=== PATIENT | female | born 2000 | race Caucasian/White ===

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

== ENCOUNTER → 2019-03-07 11:22 | Outpatient (CLI) | payer OTHER, SELFPAY ==
[2019-03-07 10:54] VITALS: BMI 24.9
[2019-03-07 12:00] LABS: Absolute Lymphocyte Count 2.16 X10^3/ul (0.83-4.51); Absolute Neutrophil Count 9.6 X10^3/uL (2.0-7.7); Basophil# 0.03 X10^3/uL; Basophil% 0.2 % (0-1); Eosinophil# 0.07 X10^3/uL; Eosinophils% 0.6 % (0-5); Hematocrit 29.2 % (37-47); Hemoglobin 9.3 g/dl (12.0-15.0); Lymphocyte # 2.16 X10^3/ul (4.0); Lymphocyte % 17.3 % (19-41); Mean Corp Hgb Conc 31.8 g/gl (32-36); Mean Corpuscular Hgb 24.5 pg (27.0-32.0); Mean Corpuscular Volume 76.8 fL (81-99); Mean Platelet Vol. 10.4 fl (6.2-12.0); Monocyte% 4.8 % (0-10); Neutrophil # 9.57 X10^3/uL (2.7-7.7); Neutrophil % 76.7 % (47-70); Platelet Count 262 K/mm3 (150-450); RBC Distribution Width CV 13.5 % (11.6-14.6); RBC Distribution Width SD 36.5 fl (35.1-43.9); White Blood Count 12.5 K/mm3 (4.4-11.0)
[2019-03-07 12:02] LABS: POSITIVE COUNT NO; POSITIVE DIFFERENTIAL NO; POSITIVE MORPHOLOGY NO
[2019-03-07 12:16] LABS: Glucose Challenge Gest 1H 50g 147 mg/dL (70-140)
== END ==
PROVIDERS: Nurse Practitioner Women's Health; Family Provider Pediatrics; PCP Pediatrics; Referring Provider Obstetrics & Gynecology; Visit Provider Obstetrics & Gynecology
DX: Z34.80 Encounter for supervision of other normal pregnancy, unspecified trimester (principal)
CPT/HCPCS: 36415; 82950; 85025

== ENCOUNTER 2019-03-28 21:37 | Emergency (ER) | payer OTHER, MEDICAID, SELFPAY ==
[2019-03-28 11:26] VITALS: BMI 24.9
[2019-03-28 21:39] VITALS: BP 133/65; PULSE 104; RESP 18; TEMP 36.8; O2SAT 96; BMI 28.0
[2019-03-28 21:57] LABS: Mucous, Urine 0 SEEN /hpf (<or=2+)
[2019-03-28 22:20] LABS: Color, Urine Yellow (Yellow); Glucose, Dipstick Normal (Normal); Ketone-Dipstick Negative (Negative); Leukocyte Esterase-Dipstick 25 /ul (Negative); Nitrite-Dipstick Negative (Negative); Occult Blood-Urine 10 /ul (Negative); Protein-Dipstick Negative (Negative); Specific Gravity, Urine 1.005 (1.002-1.030); Urine Bilirubin Dipstick Negative (Negative); Urine Clarity Sl. Cloudy (Clear); Urine Urobilinogen Normal (Normal)
[2019-03-28 22:21] LABS: Squamous Epithelial Cells - UA 0-5 SEEN /hpf (5-10)
[2019-03-28 22:23] LABS: Bacteria RARE /hpf (None Seen); Red Blood Cells-Urine 0-5 SEEN /hpf (0-5); White Blood Cells 0-5 SEEN /hpf (0-5)
--- NOTE | 2019-03-28 23:23 | ED.DCSUM_ITS ---
History of Present Illness Chief Complaint: Complaint Informant: Patient Onset: Yesterday Context: Sudden Onset Timing: Intermittent Quality: Suprapubic pressure, frequency and low back pain Location: Central Current Severity: Mild Maximum Severity: Mild Worsened by: Nothing Relieved by: Nothing Associated Symptoms: No constitutional symptoms Narrative: Patient is a G2, P1 Ab0 female who is 31 weeks gestation and presents with frequency. She was diagnosed with UTI at urgent care. She was placed on a 7- day course of Macrobid. She reports she continues to have frequency. She denies fever, chills or night sweats. She denies ocular, visual or auditory symptoms. She denies respiratory cardiac symptoms. She denies nausea or vomiting. She denies abdominal pain. She states she had 4 urinary tract infections during her first . Prior similar symptoms: Yes Recent Illness/Hospitalization: No - Past Medical History (1) UTI in , antepartum Status: Acute Comment: treated; repeat culture neg Past Medical History - Allergies and Home Meds Allergies/Adverse Reactions: Allergies No Known Allergies Allergy (Verified 03/28/19 21:43) Primary Care Physician: Anahy Hirsch MD [Primary Care Provider] - Prior records reviewed: Yes Surgical History: no surgical history Lives: With Family Smoking Status: Never smoker Alcohol: None Review of Systems General: Denies: Chills, Fever, Malaise, Sweats Cardiovascular: Denies: Chest pain Respiratory: Denies: Dyspnea Gastrointestinal: Denies: Abdominal pain, Nausea, Vomiting Genitourinary: Reports: Frequency. Denies: Dysuria, Hematuria Musculoskeletal: Denies: Myalgias, Arthralgias, Neck pain, Back pain Skin: Denies: Rash Neurological: Denies: Headache, Weakness Physical Exam Vital Signs/Narrative: Vital Signs Temp Pulse Resp BP Pulse Ox 03/28/19 21:39 98.2 F 104 H 18 133/65 H 96 Inital Vital Signs reviewed: Yes General: Well nourished, Well developed, No Acute Distress Head: Normocephalic, Atraumatic Eyes: Perrl, EOMI. Negative for: Pale conjunctiva, Scleral icterus ENT: Moist mucous membranes, No rhinorrhea, TM's clear Neck: Supple, Nontender Cardiovascular: Regular rate, Regular rhythm, No murmurs, Normal S1, Normal S2 Respiratory: No distress, CTA bilaterally, Chest nontender Abdomen: Soft, Nontender, Nondistended, Normal bowel sounds, No masses Back: Nontender, Normal Inspection. Negative for: CVA tenderness Skin: Normal color, No rash Neurological: Alert, Oriented x3, Cranial nerves II-XII grossly intact, Normal Strength, Normal Sensation Psychological: Normal affect, Normal Mood Diagnostic/Tx/Re-eval Laboratory Results 03/28/19 03/28/19 03/28/19 21:45 23:24 23:24 WBC 13.7 H RBC 3.61 L Hgb 8.9 L Hct 27.3 L MCV 75.6 L MCH 24.7 L MCHC 32.6 RDW 14.6 RDW Differential 38.4 Plt Count 268 MPV 10.5 Immature Gran % (Auto) 0.900 Neut % (Auto) 69.3 Lymph % (Auto) 19.7 Ross % (Auto) 9.0 Eos % (Auto) 0.9 Baso % (Auto) 0.2 Absolute Neuts (auto) 9.5 H Absolute Lymphs (auto) 2.71 Sodium 138 Potassium 3.5 Chloride 108 H Carbon Dioxide 22.0 Anion Gap 8 BUN 9 Creatinine 0.64 Estim Creat Clear Calc 131.26 Est GFR (MDRD) Af Amer 152 Est GFR (MDRD) Non-Af 126 BUN/Creatinine Ratio 14.1 Glucose 98 Calcium 8.6 Urine Color Yellow Urine Clarity Sl. Cloudy Urine pH 7.0 Ur Specific [place] 1.005 Urine Protein Negative Urine Glucose (UA) Normal Urine Ketones Negative Urine Occult Blood 10 H Urine Nitrite Negative Urine Bilirubin Negative Urine Urobilinogen Normal Ur Leukocyte Esterase 25 H Urine RBC 0-5 SEEN Urine WBC 0-5 SEEN Ur Squamous Epith Cells 0-5 SEEN Urine Bacteria RARE Urine Mucus 0 SEEN - Medical Decision Making Patient diagnosed earlier today with UTI. She continues symptoms. Patient reports using the restroom every 30 to 60 minutes. This may explain why her urinalysis is unremarkable this evening. Patient was informed even though her urine is unremarkable she may still have urinary symptoms for 24 to 48 hours. Will prescribe Pyridium. She was instr ucted to continue taking Macrobid. She also has history of microcytic anemia. She was placed on iron tablets 3 times a day last week. ED Disposition - Plan for ED Patient: Disposition: Home or Assisted Living Diagnosis: Cystitis during in third trimester, antepartum, Microcytic anemia Instructions: ED UTI Cystitis Female Referrals: Anahy Hirsch MD [Primary Care Provider] - Tg Franks MD [STAFF PHYSICIAN] - 3-5 Days
[2019-03-28 23:36] LABS: Absolute Lymphocyte Count 2.71 X10^3/ul (0.83-4.51); Absolute Neutrophil Count 9.5 X10^3/uL (2.0-7.7); Basophil# 0.03 X10^3/uL; Basophil% 0.2 % (0-1); Eosinophil# 0.13 X10^3/uL; Eosinophils% 0.9 % (0-5); Hematocrit 27.3 % (37-47); Hemoglobin 8.9 g/dl (12.0-15.0); Lymphocyte # 2.71 X10^3/ul (4.0); Lymphocyte % 19.7 % (19-41); Mean Corp Hgb Conc 32.6 g/gl (32-36); Mean Corpuscular Hgb 24.7 pg (27.0-32.0); Mean Corpuscular Volume 75.6 fL (81-99); Mean Platelet Vol. 10.5 fl (6.2-12.0); Monocyte# 1.23 X10^3/uL; Neutrophil # 9.51 X10^3/uL (2.7-7.7); Neutrophil % 69.3 % (47-70); Platelet Count 268 K/mm3 (150-450); RBC Distribution Width CV 14.6 % (11.6-14.6); RBC Distribution Width SD 38.4 fl (35.1-43.9); Red Blood Count 3.61 M/mm3 (4.2-5.4); White Blood Count 13.7 K/mm3 (4.4-11.0)
[2019-03-28 23:38] LABS: Differential Indicated SCAN CRITERIA MET; POSITIVE COUNT NO; POSITIVE DIFFERENTIAL NO; POSITIVE MORPHOLOGY YES
[2019-03-28 23:48] LABS: Anion Gap 8 (5-15); BUN 9 mg/dL (7-18); BUN/Creat Ratio 14.1 RATIO (10-20); Calcium,Total 8.6 mg/dL (8.5-10.1); Chloride 108 mmol/L (98-107); Creatinine, Serum 0.64 mg/dL (0.55-1.02); EST Glomerular Filtration Rate 126 mL/min (>60); Est Glom Filt Rate - Afr Amer 152 mL/min (>60); Estimated Creatinine Clearance 131.26 ml/min; Glucose 98 mg/dL (74-106); Potassium 3.5 mmol/L (3.5-5.1); Sodium Level 138 mmol/L (136-145)
[2019-03-29] LABS: Differential Comment SCANNED
[2019-03-29 00:08] VITALS: BP 101/63; PULSE 82; RESP 16; O2SAT 97
[2019-03-29 00:11] VITALS: BP 101/63; PULSE 82; RESP 16; O2SAT 97
--- NOTE | 2019-03-29 00:11 | ED.DCSUM_ITS ---
- ER Visit Summary Date of Service: 03/29/19 Chief Complaint: [] History of Present Illness: The patient is a 19 F [] Physical Examination: [] Test Results: [] Emergency Department Course and Treatment: [] Treatment Plan: [] Disposition: [] Impression: [] This note was generated with [employer]points dictation software. It may contain incorrect words, spelling, and punctuation that were not noted in review of the chart prior to signing ED Disposition - Plan for ED Patient: Disposition: Home or Assisted Living Diagnosis: Cystitis during in third trimester, antepartum, Microcytic anemia Instructions: ED UTI Cystitis Female Prescriptions: Phenazopyridine HCl [Pyridium] 200 mg PO TID #10 tab Referrals: Anahy Hirsch MD [Primary Care Provider] - Tg Franks MD [STAFF PHYSICIAN] - 3-5 Days
== END 2019-03-29 00:13 | disposition home or self-care (01) ==
PROVIDERS: Emergency Provider Emergency Medicine; Family Provider Pediatrics; PCP Pediatrics
DX: O23.13 Infections of bladder in pregnancy, third trimester (principal); N30.00 Acute cystitis without hematuria; O99.013 Anemia complicating pregnancy, third trimester; D50.9 Iron deficiency anemia, unspecified; Z3A.31 31 weeks gestation of pregnancy
CPT/HCPCS: 80048; 81001; 85025; 99283; A4216

== ENCOUNTER → 2019-03-30 09:43 | Outpatient (CLI) | payer OTHER, SELFPAY ==
[2019-03-28 11:26] VITALS: BMI 24.9
[2019-03-28 21:39] VITALS: BMI 28.0
[2019-03-30 11:03] LABS: Glucose GTT-Gestation. Fasting 83 mg/dL (<105)
[2019-03-30 12:02] LABS: Glucose GTT-Gestational 1 Hr 138 mg/dL (<190)
[2019-03-30 13:42] LABS: Glucose GTT-Gestational 2 Hr 131 mg/dL (<165)
[2019-03-30 13:54] LABS: Glucose GTT-Gestational 3 Hr 88 L (<145)
== END ==
PROVIDERS: Family Provider Pediatrics; PCP Pediatrics; Referring Provider Nurse Practitioner Women's Health; Visit Provider Nurse Practitioner Women's Health
DX: O99.815 Abnormal glucose complicating the puerperium (principal)
CPT/HCPCS: 36415; 82951; 82952

== ENCOUNTER → 2019-04-18 15:23 | Outpatient (CLI) | payer OTHER, SELFPAY ==
[2019-04-18 15:06] VITALS: BMI 28.0
[2019-04-18 16:14] LABS: Protein, Urine (Random) 27.8 mg/dL (<11.9); Protein:Creat Ratio 260 mg/g CRE (0-200)
[2019-04-18 16:28] LABS: ALB/GLOB Ratio 0.5 RATIO (0.9-2.4); AST(SGOT) 26 U/L (15-37); Alanine Aminotransfer ALT/SGPT 21 U/L (13-56); Albumin, Serum 2.5 g/dL (3.2-5.0); Alkaline Phosphatase 126 U/L (45-117); Anion Gap 10 (5-15); BUN 5 mg/dL (7-18); BUN/Creat Ratio 6.4 RATIO (10-20); Calcium,Total 8.3 mg/dL (8.5-10.1); Chloride 108 mmol/L (98-107); Creatinine, Serum 0.78 mg/dL (0.55-1.02); EST Glomerular Filtration Rate 101 mL/min (>60); Est Glom Filt Rate - Afr Amer 122 mL/min (>60); Globulin 4.6 g/dL (2.2-4.2); Glucose 90 mg/dL (74-106); Potassium 3.6 mmol/L (3.5-5.1); Protein, Total 7.1 g/dL (6.4-8.2); Sodium Level 140 mmol/L (136-145)
[2019-04-18 16:29] LABS: Absolute Lymphocyte Count 1.99 X10^3/ul (0.83-4.51); Absolute Neutrophil Count 7.9 X10^3/uL (2.0-7.7); Basophil# 0.02 X10^3/uL; Basophil% 0.2 % (0-1); Differential Indicated SCAN CRITERIA MET; Eosinophil# 0.11 X10^3/uL; Hematocrit 28.4 % (37-47); Hemoglobin 9.1 g/dl (12.0-15.0); Lymphocyte # 1.99 X10^3/ul (4.0); Lymphocyte % 18.2 % (19-41); Mean Corpuscular Hgb 23.9 pg (27.0-32.0); Mean Corpuscular Volume 74.5 fL (81-99); Monocyte# 0.85 X10^3/uL; Monocyte% 7.8 % (0-10); Neutrophil # 7.88 X10^3/uL (2.7-7.7); Neutrophil % 72.3 % (47-70); POSITIVE COUNT NO; POSITIVE DIFFERENTIAL NO; POSITIVE MORPHOLOGY YES; Platelet Count 267 K/mm3 (150-450); RBC Distribution Width CV 14.7 % (11.6-14.6); RBC Distribution Width SD 39.6 fl (35.1-43.9); Red Blood Count 3.81 M/mm3 (4.2-5.4); White Blood Count 10.9 K/mm3 (4.4-11.0)
[2019-04-18 18:11] LABS: Differential Comment SCANNED
== END ==
PROVIDERS: Family Provider Pediatrics; PCP Pediatrics; Referring Provider Obstetrics & Gynecology; Visit Provider Obstetrics & Gynecology
DX: O99.719 Diseases of the skin and subcutaneous tissue complicating pregnancy, unspecified trimester (principal); L29.9 Pruritus, unspecified; Z3A.00 Weeks of gestation of pregnancy not specified
CPT/HCPCS: 36415; 80053; 82570; 84156; 85025

== ENCOUNTER 2019-04-22 12:33 | Emergency (ER) | payer OTHER, MEDICAID, SELFPAY ==
[2019-04-18 15:06] VITALS: BMI 28.0
[2019-04-22 12:36] VITALS: BP 108/65; PULSE 102; RESP 18; TEMP 36.6; O2SAT 97; BMI 28.8
--- NOTE | 2019-04-22 12:39 | CT_ITS ---
STUDY: CTA CHEST REASON FOR EXAM: Female, 19 years old. RADIATION DOSAGE (If Supplied By Facility): CTDIvol = ( 13.31 ) mGy, DLP = ( 383.10 ) mGycm TECHNIQUE: The examination was performed with the intravenous administration of 75CC IV Isovue 370. Post-processing of the angiographic images was performed, with multiplanar reformation and 3D reconstruction. Individualized dose optimization techniques were used for this CT. COMPARISON: None. FINDINGS: Normal enhancement of the main pulmonary artery and right and left pulmonary arteries. Normal enhancement of the bilateral peripheral pulmonary arteries. There is no demonstrated pulmonary embolism. Normal thoracic aorta and visualized great vessels. There is no demonstrated aortic dissection. Normal heart and pericardium. Normal mediastinum. Normal hilar regions. Normal visualized trachea and bronchi. The lungs are well expanded. Normal pulmonary parenchyma. Normal pleural effusion or pneumothorax. There is prominent fibroglandular tissue because the patient is Normal chest wall structures. Normal osseous structures. Normal visualized upper abdomen. CT/CTA Chest W/WO Contrast IMPRESSION: Normal CTA chest examination, without a demonstrated pulmonary embolism or arterial dissection. Electronically Signed: Chanell Doty, at 15:42 EDT Tel , Service support ,
--- NOTE | 2019-04-22 12:44 | EKG12_ITS ---
Test Reason : CP Blood Pressure : / mmHG Vent. Rate : 098 BPM Atrial Rate : 098 BPM P-R Int : 134 ms QRS Dur : 084 ms QT Int : 350 ms P-R-T Axes : 023 029 003 degrees QTc Int : 446 ms Normal sinus rhythm Normal ECG Confirmed by ESTHER ROSA ([id number]), publication editor RASHMI VINCENT ([id number]) on 04/26/2019 2:13:12 PM Referred By: Tg Franks Confirmed By:ESTHER ROSA
--- NOTE | 2019-04-22 12:46 | ED.DCSUM_ITS ---
History of Present Illness Chief Complaint: Shortness of Breath Informant: Patient, Family Onset: Days Current Severity: Mild Narrative: Patient reports she is 34 weeks , second , first with uncomplicated, to date this is uncomplicated with no pain or bleeding, indicates for 3 days she has had a harsh cough the cough is slightly pruritic really nonproductive, she went to urgent care center and was sent to the emerg ency department she also complains of fatigue, she has no history of CA PE or DVT she has been eating and drinking well bowel bladder habits been normal and again no vaginal bleeding or discharge or any signs of comp case of she is having no abdominal pain no leg swelling or edema Past Medical History - Allergies and Home Meds Allergies/Adverse Reactions: Allergies No Known Allergies Allergy (Verified 04/22/19 12:39) Primary Care Physician: Anahy Hirsch MD [Primary Care Provider] - Past Medical History: - Surgical History: no surgical history Smoking Status: Never smoker Review of Systems ROS: - See above General: Denies: Chills, Fever, Sweats Eyes: Denies: Visual changes - bilaterally, Diplopia ENT: Denies: Rhinorrhea, Sore throat Cardiovascular: Reports: Chest pain. Denies: Palpitations Respiratory: Reports: Dyspnea, Cough. Denies: Dyspnea on exertion Gastrointestinal: Denies: Abdominal pain, Nausea, Vomiting, Diarrhea, Melena, Hematochezia Genitourinary: Denies: Dysuria, Hematuria, Frequency Musculoskeletal: Denies: Back pain, Extremity Pain Skin: Denies: Rash, Wounds Neurological: Denies: Headache, Weakness, Numbness Physical Exam Vital Signs/Narrative: Vital Signs Temp Pulse Resp BP Pulse Ox 04/22/19 12:36 97.8 F 102 H 18 108/65 97 General: Well nourished, Well developed, No Acute Distress Head: Normocephalic, Atraumatic Eyes: Perrl, EOMI ENT: Moist mucous membranes, No rhinorrhea Neck: Supple, Nontender Cardiovascular: Regular rate, Regular rhythm, No murmurs Respiratory: No distress, CTA bilaterally, Chest nontender, - - Easing at the right base her air movement is good she is in no distress her pulse ox and vital signs are unremarkable Abdomen: Soft, Nontender, Nondistended, Normal bowel sounds Back: Nontender, Normal Inspection Extremities: Nontender, No edema Skin: Normal color, No rash Neurological: Alert, Oriented x3, Cranial nerves II-XII grossly intact, Normal Strength, Normal Sensation Psychological: Normal affect, Normal Mood Diagnostic/Tx/Re-eval - Medical Decision Making She has a cough chest pain that is pleuritic in nature to a degree she is 34 weeks given all the above I discussed the lung differential with her and her father including PE they understand the need for CTA they agree will she will the abdomen follow standard PE protocol in IV fluids aerosols Patient screening labs chest x-ray are all unremarkable EKG shows a sinus rhythm nothing acute rate 96 CTA shows no signs of PE pneumonia or other acute normality see that report They are comfortable with discharge home pain she has had pneumonia in the past, nothing recent believes azithromycin has helped she will be discharged on Proventil inhaler azithromycin Z-Luis and 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
--- NOTE | 2019-04-22 12:48 | RAD_ITS ---
STUDY: X-RAY CHEST REASON FOR EXAM: Female, 19 years old. He structures are maintained no no significant change is 4-4 [id number] TECHNIQUE: COMPARISON: March 19, 2018. FINDINGS: The lungs are clear and expanded. There is no demonstrated pleural abnormality. Normal size heart. Normal mediastinum and rosa elena. Normal visualized pulmonary arteries. Normal visualized aortic arch and descending thoracic aorta. Normal visualized thoracic spine. Normal visualized ribs, clavicles, and shoulders. There is no demonstrated abnormality of the visualized soft tissue structures of the upper abdomen. RAD/Chest 1 View (Portable) IMPRESSION: Normal x-ray examination of the chest unchanged since March 19, 2018. Electronically Signed: Chanell Doty, at 13:52 EDT Tel , Service support ,
[2019-04-22] MEDS: Ipratropium/Albuterol Sulfate 3 ML AMPUL.NEB INHALATION (13:00)
[2019-04-22 13:03] VITALS: PULSE 99; RESP 18
[2019-04-22 13:16] VITALS: BP 131/76; PULSE 116; RESP 25; TEMP 36.6; O2SAT 95; O2SAT 97
[2019-04-22] MEDS: 0.9% Normal Saline 1,000 ML 1000 ML IV (13:39)
[2019-04-22 13:42] LABS: Absolute Lymphocyte Count 1.76 X10^3/ul (0.83-4.51); Absolute Neutrophil Count 13.2 X10^3/uL (2.0-7.7); Basophil# 0.02 X10^3/uL; Basophil% 0.1 % (0-1); Eosinophil# 0.09 X10^3/uL; Eosinophils% 0.6 % (0-5); Hematocrit 26.9 % (37-47); Hemoglobin 8.6 g/dl (12.0-15.0); Lymphocyte # 1.76 X10^3/ul (4.0); Lymphocyte % 10.9 % (19-41); Mean Corpuscular Hgb 23.7 pg (27.0-32.0); Mean Corpuscular Volume 74.1 fL (81-99); Mean Platelet Vol. 10.1 fl (6.2-12.0); Monocyte# 1.06 X10^3/uL; Monocyte% 6.5 % (0-10); Neutrophil # 13.22 X10^3/uL (2.7-7.7); Neutrophil % 81.5 % (47-70); Platelet Count 234 K/mm3 (150-450); RBC Distribution Width CV 14.7 % (11.6-14.6); RBC Distribution Width SD 39.9 fl (35.1-43.9); Red Blood Count 3.63 M/mm3 (4.2-5.4); White Blood Count 16.2 K/mm3 (4.4-11.0)
[2019-04-22 13:43] LABS: POSITIVE DIFFERENTIAL NO
[2019-04-22 13:44] LABS: Differential Indicated SCAN CRITERIA MET; POSITIVE COUNT NO; POSITIVE MORPHOLOGY YES
[2019-04-22 13:58] LABS: Anion Gap 7 (5-15); BUN 5 mg/dL (7-18); BUN/Creat Ratio 7.7 RATIO (10-20); Calcium,Total 8.3 mg/dL (8.5-10.1); Chloride 108 mmol/L (98-107); Creatinine, Serum 0.65 mg/dL (0.55-1.02); EST Glomerular Filtration Rate 124 mL/min (>60); Est Glom Filt Rate - Afr Amer 150 mL/min (>60); Estimated Creatinine Clearance 129.24 ml/min; Glucose 107 mg/dL (74-106); Hypochromasia 1+; Microcytosis 2+; Polychromasia RARE; Potassium 3.2 mmol/L (3.5-5.1); Sodium Level 137 mmol/L (136-145)
[2019-04-22 15:38] VITALS: BP 131/70; PULSE 94; RESP 19; O2SAT 97
[2019-04-22 15:54] VITALS: BP 131/74; PULSE 101; RESP 20; O2SAT 98
== END 2019-04-22 15:54 | disposition home or self-care (01) ==
LOC: ED 13:17
PROVIDERS: Emergency Provider Emergency Medicine; Family Provider Pediatrics; PCP Pediatrics
DX: O99.513 Diseases of the respiratory system complicating pregnancy, third trimester (principal); J40 Bronchitis, not specified as acute or chronic; Z3A.34 34 weeks gestation of pregnancy
CPT/HCPCS: 71045; 71275; 80048; 84484; 85025; 93005; 94640; 96360; 96361; 99284; J7030; Q9967; A4216

== ENCOUNTER 2019-05-09 12:25 | Outpatient (CLI) | payer OTHER, SELFPAY ==
[2019-05-09 12:10] VITALS: BMI 28.8
[2019-05-09 13:03] VITALS: BMI 29.0
[2019-05-09 13:49] LABS: Hematocrit 24.1 % (37-47); Hemoglobin 7.8 g/dl (12.0-15.0); Mean Corp Hgb Conc 32.4 g/gl (32-36); Mean Corpuscular Hgb 23.2 pg (27.0-32.0); Mean Corpuscular Volume 71.7 fL (81-99); Mean Platelet Vol. 9.8 fl (6.2-12.0); Platelet Count 264 K/mm3 (150-450); RBC Distribution Width CV 15.2 % (11.6-14.6); RBC Distribution Width SD 40.4 fl (35.1-43.9); Red Blood Count 3.36 M/mm3 (4.2-5.4); White Blood Count 9.1 K/mm3 (4.4-11.0)
[2019-05-09 13:50] LABS: Scan Indicated on CBC? Y/N NO
[2019-05-09 13:59] LABS: Prothrombin Time (Protime)PT. 13.4 SECONDS (11.7-14.9)
[2019-05-09 14:00] VITALS: BMI 28.8
[2019-05-09 14:00] LABS: Partial Thromboplast Time 26.8 Seconds (24.1-36.2)
[2019-05-09 14:01] LABS: AST(SGOT) 30 U/L (15-37); Alanine Aminotransfer ALT/SGPT 20 U/L (13-56); Creatinine, Serum 0.62 mg/dL (0.55-1.02); EST Glomerular Filtration Rate 130 mL/min (>60); Est Glom Filt Rate - Afr Amer 157 mL/min (>60); Uric Acid 4.5 mg/dL (2.6-6.0)
--- NOTE | 2019-05-09 14:33 | US_ITS ---
STUDY: OBSTETRICAL ULTRASOUND - BIOPHYSICAL PROFILE REASON FOR EXAM: Female, 19 years old. well-being. LMP: 08/25/2018 PRIOR ULTRASOUND: None. TECHNIQUE: Transabdominal TECHNICAL QUALITY: Adequate. FINDINGS: There is a single intrauterine fetus. The fetus is in a cephalic presentation. There is demonstrated cardiac activity with a heart rate of 140 bpm. There is a normal amniotic fluid volume. The largest amniotic fluid pocket measures 5.8 cm. The amniotic fluid index (SAMI) is 8.7 cm. The placenta is anterior in location and is not low lying. There are Grade 3 placental changes. Age by LMP: 36 weeks, 5 days. SARA by LMP: 06/01/2019. BIOPHYSICAL PROFILE: Breathing Movements (FBM): 2 Gross Body Movements (GBM): 2 Tone (FT): 0 Amniotic Fluid Volume (AFV): 2 TOTAL SCORE: 6 / 8 US/Biophysical Prof W/O Non Stres IMPRESSION: Abnormal biophysical profile of 6/8 because of tone score of 0. Electronically Signed: Linoel Wiggins MD at 19:39 EDT , Service support ,
[2019-05-09 14:38] LABS: Protein, Urine (Random) 14.9 mg/dL (<11.9); Protein:Creat Ratio 359 mg/g CRE (0-200)
[2019-05-09] MEDS: Betamethasone/Betamethasone 30 MG/5 ML Vial 12 MG IM (14:44)
[2019-05-09 14:45] LABS: Group B Strep DNA By PCR POSITIVE (Negative); Probe Check PASS
--- NOTE | 2019-05-09 23:06 | OB.TRI.PN ---
Progress Notes Date of Service: 05/09/19 Progress Note: 19-year-old at 36 weeks 5 days presents for evaluation due to cholestasis and elevated blood pressures in the office. Urine protein creatinine ratio is elevated but all repeat blood pressures are within normal limits and labs within normal limits except for elevated bile acids. BPP 8 out of 10 with a reactive NST heart tone 125 moderate variability reactive no decelerations category 1 tracing [place]: No regular contractions 1 to 2 cm Assessment and plan 19-year-old at 36 weeks 5 days with cholestasis Reassuring testing reviewed kick counts and recommend Celestone 12 mg now and repeat in 24 hours. Repeat BPP tomorrow. Plan induction of labor at 37 weeks. Reviewed preeclampsia precautions. Laboratory Studies: Laboratory Tests 05/09/19 05/09/19 05/09/19 Range/Units 13:35 13:35 13:35 WBC (4.4-11.0) K/mm3 RBC (4.2-5.4) M/mm3 Hgb (12.0-15.0) g/dl Hct (37-47) % MCV (81-99) fL MCH (27.0-32.0) pg MCHC (32-36) g/gl RDW (11.6-14.6) % RDW Differential (35.1-43.9) fl Plt Count (150-450) K/mm3 MPV (6.2-12.0) fl PT 13.4 (11.7-14.9) SECONDS INR 1.0 APTT 26.8 (24.1-36.2) Seconds Creatinine 0.62 (0.55-1.02) mg/dL Estim Creat Clear Calc 135.50 ml/min Est GFR (MDRD) Af Amer 157 (>60) mL/min Est GFR (MDRD) Non-Af 130 (>60) mL/min Uric Acid 4.5 (2.6-6.0) mg/dL AST 30 (15-37) U/L ALT 20 (13-56) U/L U Random Total Protein 14.9 H (<11.9) mg/dL Urine Creatinine 41.50 (NO RANGE EST.) mg/dL Protein/Creatinin Ratio 359 H (0-200) mg/g CRE Group B Strep DNA (Negative) Specimen Comment 05/09/19 05/09/19 Range/Units 13:35 12:55 WBC 9.1 (4.4-11.0) K/mm3 RBC 3.36 L (4.2-5.4) M/mm3 Hgb 7.8 L (12.0-15.0) g/dl Hct 24.1 L (37-47) % MCV 71.7 L (81-99) fL MCH 23.2 L (27.0-32.0) pg MCHC 32.4 (32-36) g/gl RDW 15.2 H (11.6-14.6) % RDW Differential 40.4 (35.1-43.9) fl Plt Count 264 (150-450) K/mm3 MPV 9.8 (6.2-12.0) fl PT (11.7-14.9) SECONDS INR APTT (24.1-36.2) Seconds Creatinine (0.55-1.02) mg/dL Estim Creat Clear Calc ml/min Est GFR (MDRD) Af Amer (>60) mL/min Est GFR (MDRD) Non-Af (>60) mL/min Uric Acid (2.6-6.0) mg/dL AST (15-37) U/L ALT (13-56) U/L U Random Total Protein (<11.9) mg/dL Urine Creatinine (NO RANGE EST.) mg/dL Protein/Creatinin Ratio (0-200) mg/g CRE Group B Strep DNA POSITIVE H (Negative) Specimen Comment Not Reportable
== END 2019-05-09 17:50 | disposition home or self-care (01) ==
LOC: WPOUT 12:37 → WP 12:39
PROVIDERS: Family Provider Pediatrics; PCP Pediatrics; Referring Provider Obstetrics & Gynecology; Visit Provider Obstetrics & Gynecology
DX: O26.613 Liver and biliary tract disorders in pregnancy, third trimester (principal); K83.1 Obstruction of bile duct; O16.3 Unspecified maternal hypertension, third trimester; Z3A.36 36 weeks gestation of pregnancy
CPT/HCPCS: 96372; 59025; 59050; 76819; 82565; 82570; 84156; 84450; 84460; 84550; 85027; 85610; 85730; 87653; 99218; G0378; J0702

== ENCOUNTER 2019-05-10 14:15 | Outpatient (CLI) | payer OTHER, SELFPAY ==
[2019-05-09 14:00] VITALS: BMI 28.8
[2019-05-10 14:24] VITALS: BMI 29.0
--- NOTE | 2019-05-10 14:25 | US_ITS ---
STUDY: OBSTETRICAL ULTRASOUND - BIOPHYSICAL PROFILE REASON FOR EXAM: Female, 19 years old. well-being. Preeclampsia. LMP: August 25, 2018. PRIOR ULTRASOUND: Comparison is made with prior study dated May 09, 2019. TECHNIQUE: Transabdominal TECHNICAL QUALITY: Adequate. FINDINGS: There is a single intrauterine fetus. The fetus is in a cephalic presentation. There is demonstrated cardiac activity with a heart rate of 143 bpm. There is a normal amniotic fluid volume. The largest amniotic fluid pocket measures 7.7 cm. The amniotic fluid index (SAMI) is 18.85 cm. The placenta is anterior in location and is not low lying. There are Grade 3 placental changes. Age by LMP: 36 weeks, 6 days. SARA by LMP: June 01, 2019. BIOPHYSICAL PROFILE: Breathing Movements (FBM): 2 Gross Body Movements (GBM): 2 Tone (FT): 2 Amniotic Fluid Volume (AFV): 2 TOTAL SCORE: 8 / 8 US/Biophysical Profile IMPRESSION: Normal biophysical profile of 88. Electronically Signed: Juan Daniel Mckeon, at 15:45 EDT , Service support ,
[2019-05-10] MEDS: Betamethasone/Betamethasone 30 MG/5 ML Vial 12 MG IM (15:27)
--- NOTE | 2019-05-10 19:18 | OB.TRI.PN ---
Progress Notes Date of Service: 05/10/19 Progress Note: juliann number 2 and 06/08 bpp today
== END 2019-05-10 15:30 | disposition home or self-care (01) ==
LOC: WPOUT 14:23 → WP 14:24
PROVIDERS: Family Provider Pediatrics; PCP Pediatrics; Referring Provider Obstetrics & Gynecology; Visit Provider Obstetrics & Gynecology
DX: O60.03 Preterm labor without delivery, third trimester (principal); O14.93 Unspecified pre-eclampsia, third trimester; Z3A.36 36 weeks gestation of pregnancy
CPT/HCPCS: 76818; 96372; 99218; G0378; J0702

== ENCOUNTER 2019-05-11 14:05 | Inpatient (IN) | payer OTHER, MEDICAID, SELFPAY ==
[2019-05-10 14:24] VITALS: BMI 29.0
[2019-05-11 14:37] VITALS: BMI 29.0
[2019-05-11] MEDS: Lactated Ringers 1,000 ML 50 ML IV ×2 (14:37→20:26)
[2019-05-11 15:00] LABS: Absolute Lymphocyte Count 2.14 X10^3/ul (0.83-4.51); Basophil# 0.01 X10^3/uL; Basophil% 0.1 % (0-1); Eosinophil# 0.02 X10^3/uL; Eosinophils% 0.1 % (0-5); Hematocrit 24.2 % (37-47); Hemoglobin 7.5 g/dl (12.0-15.0); Lymphocyte # 2.14 X10^3/ul (4.0); Lymphocyte % 15.5 % (19-41); Mean Corpuscular Hgb 22.6 pg (27.0-32.0); Mean Corpuscular Volume 72.9 fL (81-99); Mean Platelet Vol. 9.9 fl (6.2-12.0); Monocyte# 1.49 X10^3/uL; Monocyte% 10.8 % (0-10); Neutrophil # 9.98 X10^3/uL (2.7-7.7); Neutrophil % 72.1 % (47-70); Platelet Count 296 K/mm3 (150-450); RBC Distribution Width CV 15.4 % (11.6-14.6); RBC Distribution Width SD 41.6 fl (35.1-43.9); Red Blood Count 3.32 M/mm3 (4.2-5.4); White Blood Count 13.8 K/mm3 (4.4-11.0)
[2019-05-11 15:01] LABS: POSITIVE COUNT NO; POSITIVE DIFFERENTIAL NO; POSITIVE MORPHOLOGY NO
[2019-05-11 15:15] LABS: Prothrombin Time (Protime)PT. 13.4 SECONDS (11.7-14.9)
[2019-05-11 15:17] LABS: AST(SGOT) 36 U/L (15-37); Alanine Aminotransfer ALT/SGPT 31 U/L (13-56); Creatinine, Serum 0.77 mg/dL (0.55-1.02); EST Glomerular Filtration Rate 101 mL/min (>60); Est Glom Filt Rate - Afr Amer 123 mL/min (>60); Uric Acid 4.5 mg/dL (2.6-6.0)
[2019-05-11 15:59] LABS: Partial Thromboplast Time 23.5 Seconds (24.1-36.2)
[2019-05-11] MEDS: Oxytocin 30 units/NS 500 ml 30 UNITS/500 ML IV.SOLN IV (16:18)
[2019-05-11] MEDS: 0.9% Normal Saline 100 ML IV.SOLN. INTRA-UTER (16:22)
[2019-05-11 16:53] LABS: Protein, Urine (Random) 11.8 mg/dL (<11.9); Protein:Creat Ratio 287 mg/g CRE (0-200)
--- NOTE | 2019-05-11 18:35 | PCM.HP.OB ---
- Problem List (1) Cholestasis during in third trimester Status: Acute (2) Proteinuria affecting in third trimester Status: Acute (3) Pruritus of Status: Acute Comment: check lfts and bile acids, start actigall (4) Abnormal glucose complicating puerperium Status: Acute Comment: 3hr GTT ordered - results normal (5) Anemia affecting , antepartum Status: Acute Comment: Add Fe daily (6) Low lying placenta nos or without hemorrhage, second trimester Status: Acute Comment: repeat US at 28 weeks. low lying placenta resolved. (7) UTI in , antepartum Status: Acute Comment: treated; repeat culture neg (8) Status: Acute Qualifiers: Comment: NIPT- low risk female gender, Declined Carrier and NTD. Anatomy scan ordered (9) Supervision of other normal Status: Acute Comment: PRR girl on NIPT PC Theo Spouse: Alexander History Date of Admission: 05/21/18 Final SARA: 06/01/19 Final SARA Source: US <20 weeks Gestational age: 37 Weeks and 0 Days History of this : This is a 19 year-old, at 37 weeks gestational age presents IOL cholestasis and proteinuria. she admits itching and intermittent servin, no N V. Surgical History: Surgical History (Last Reviewed 05/09/19 @ 12:05 by Janice Hernández) History of appendectomy Z98.890, Z90.49 History of tonsillectomy Z90.89 Allergies No Known Allergies Allergy (Verified 05/09/19 13:00) Home Medications: Home Medications Ferrous Sulfate [Iron] 325 mg PO Q8 05/11/19 Vits [Prenatabs FA] 1 tab PO DAILY 05/11/19 Ursodiol 300 mg PO TID 05/11/19 Smoking Status: Never smoker Alcohol: None Number of Fetus(es): 1 Heart Tracin moderate variability reactive no decelerations category I tracing [place]: no regular History Past Pregnancies: Past Pregnancies preivous term vaginal delivery uncomplicated Labs: Mom's Labs & Results 05/11/19 05/11/19 05/11/19 14:30 14:30 14:30 WBC 13.8 H RBC 3.32 L Hgb 7.5 L Hct 24.2 L MCV 72.9 L MCH 22.6 L MCHC 31.0 L RDW 15.4 H RDW Differential 41.6 Plt Count 296 MPV 9.9 Immature Gran % (Auto) 1.400 H Neut % (Auto) 72.1 H Lymph % (Auto) 15.5 L [place] % (Auto) 10.8 H Eos % (Auto) 0.1 Baso % (Auto) 0.1 Absolute Neuts (auto) 10.0 H Absolute Lymphs (auto) 2.14 Total Counted Not Reportable PT 13.4 INR 1.0 APTT 23.5 L Creatinine Estim Creat Clear Calc Est GFR (MDRD) Af Amer Est GFR (MDRD) Non-Af Uric Acid AST ALT U Random Total Protein Urine Creatinine Protein/Creatinin Ratio Blood Type A POSITIVE Antibody Screen NEGATIVE 05/11/19 05/11/19 14:30 16:00 WBC RBC Hgb Hct MCV MCH MCHC RDW RDW Differential Plt Count MPV Immature Gran % (Auto) Neut % (Auto) Lymph % (Auto) [place] % (Auto) Eos % (Auto) Baso % (Auto) Absolute Neuts (auto) Absolute Lymphs (auto) Total Counted PT INR APTT Creatinine 0.77 Estim Creat Clear Calc 109.10 Est GFR (MDRD) Af Amer 123 Est GFR (MDRD) Non-Af 101 Uric Acid 4.5 AST 36 ALT 31 U Random Total Protein 11.8 Urine Creatinine 41.10 Protein/Creatinin Ratio 287 H Blood Type Antibody Screen Course Did the patient receive Yes care? Labs Blood Type: A RH: POSITIVE RPR/VDRL/Syphilis Nonreactive Rubella status Immune HbSAg Negative Date Done: 11/30/18 Chlamydia Negative Gonorrhea Negative HIV/AIDS Non-Reactive Group B Strep: Positive Current Obstetrical History Gestational Diabetes No Incompetent Cervix No Infertility No IUGR No Macrosomia No Hypertension/Pre-eclampsia Yes: late Placenta Previa/Abruption No PTL/PROM No Uterine anomaly No Oligohydramnios No Polyhydramnios No Multiple gestation No Past Medical History Asthma No Diabetes No Hypertension No Heart disease No Mitral valve prolapse No Neurologic/Seizure disorder/ No Migraines Kidney disease No Liver disease No Varicosities No Clotting disorders/Hx of DVT No Thyroid Dysfunction No Other medical diseases No Psychiatric disorders No Major trauma No Abnormal PAP smear No Sleep apnea No Mammogram in the last 2 years No Social History Marital Status: SINGLE Alleged father Alexander Hx Smoking No Smoking Status Never smoker How long have you used no substances (years)? What date/time did you last no use any of the above? Expected Delivery Method: Spontaneous Vaginal Review of Systems Constitutional: Denies: Fever, Malaise Eyes: Denies: Blurred vision, Vision Change HEENT: Denies: Head Aches, Visual Changes Cardiovascular: Denies: Chest Pain, Palpitations Respiratory: Denies: Cough, Shortness of Breath, Wheezing Gastrointestinal: Denies: Abdominal Pain, Diarrhea, Nausea, Vomiting Genitourinary: Denies: Dysuria, Hematuria Musculoskeletal: Denies: Joint Pain, Muscle pain Skin: Denies: Lesions, Rash Neurological: Denies: Blurred vision, Focal weakness, Headaches Psychiatric: Denies: Anxiety, Depression Endocrine: Denies: Heat/ Cold Intolerance Hematologic/ Lymphatic: Denies: Easy Bruising, Easy Bleeding Physical Exam General: Alert, Cooperative, No apparent distress HEENT: Atraumatic, Normocephalic. Negative for: Thyromegaly, Lymphadenopathy Cardiovascular: Regular rate Lungs: Normal air movement Abdomen: Soft, Non Tender, Gravid Neurological: Deep Tendon Reflexes 2+/4 and Symmetrical, Neuro grossly intact. Negative for: Clonus RADIO COMMUNICATION COORDINATOR: Normal external genitalia. Negative for: Vulvar lesions Estimated gestational size: Appropriate for gestational size Presentation: Cephalic Assessment/Plan All Active Problems (Last Reviewed 05/09/19 @ 12:05 by Janice Hernández) Cholestasis during in third trimester (Acute) Proteinuria affecting in third trimester (Acute) Pruritus of (Acute) Abnormal glucose complicating puerperium (Acute) Anemia affecting , antepartum (Acute) Low lying placenta nos or without hemorrhage, second trimester (Acute) UTI in , antepartum (Acute) (Acute) Supervision of other normal (Acute) Abnormal glucose in , antepartum (Resolved) Active labor at term (Resolved) Anemia in preg-unspec (Resolved) Depression affecting (Resolved) False labor (Resolved) History of GBS (group B streptococcus) UTI, currently (Resolved) IUD contraception (Resolved) PID (acute pelvic inflammatory disease) (Resolved) Pharyngitis (Resolved) SGA (small for gestational age), , affecting care of mother, antepartum (Resolved) Supervision of normal (Resolved) This is a 19 year-old, , at 37 weeks gestational age presents IOL cholestasis. Patient presents IOL, plan management for , pitocin/AROM after garcia bulb. Pain management: plans epidural. GBS pos- PCN. Management of any complications: check CMP due to cholestasis and proteinuria, watch bps I have reviewed the PFSH and made any clinically relevant updates.
[2019-05-11] MEDS: fentaNYL-bupivacaine (epidural) 100 ML BAG EPIDURAL ×2 (19:20→23:05)
[2019-05-12] MEDS: Oxytocin 30 units/NS 500 ml 30 UNITS/500 ML IV.SOLN 334 UNITS IV (01:14)
[2019-05-12] MEDS: Oxytocin 30 units/NS 500 ml 30 UNITS/500 ML IV.SOLN 167 UNITS IV (01:44)
--- NOTE | 2019-05-12 01:57 | PCM.OPRPT ---
Problem List (1) Cholestasis during in third trimester Status: Acute (2) Proteinuria affecting in third trimester Status: Acute (3) Pruritus of Status: Acute Comment: check lfts and bile acids, start actigall (4) Abnormal glucose complicating puerperium Status: Acute Comment: 3hr GTT ordered - results normal (5) Anemia affecting , antepartum Status: Acute Comment: Add Fe daily (6) Low lying placenta nos or without hemorrhage, second trimester Status: Acute Comment: repeat US at 28 weeks. low lying placenta resolved. (7) UTI in , antepartum Status: Acute Comment: treated; repeat culture neg (8) Status: Acute Qualifiers: Comment: NIPT- low risk female gender, Declined Carrier and NTD. Anatomy scan ordered (9) Supervision of other normal Status: Acute Comment: PRR girl on NIPT PC Theo Spouse: Alexander Vaginal Delivery Maternal Presentation: Medically Indicated Induction 19-year-old G2, P1 at 37 weeks presents for induction labor secondary to cholestasis Method of Induction: Pitocin, Delong Bulb Amniotic Membrane Rupture Type: Artificial Amniotic Fluid Description: Clear Final SARA: 06/01/19 Gestational age: 37 Weeks and 1 Days Date of Procedure: 05/12/19 Pre-Operative Diagnosis: iol cholestasis Post-Operative Diagnosis: same Surgery/ Procedure Performed: Spontaneous Vaginal Delivery Type of Anesthesia: Epidural Description of Procedure: Patient began pushing and delivered the head in the GRIFFIN presentation. The head was delivered atraumatically and a loose nuchal cord ?1 was identified and easily reduced over the 's head. The anterior and posterior shoulders delivered without complication followed by the rest of the infant and the was placed on the maternal abdomen. Delayed cord clamping was employed for approximately 60 seconds. Cord was clamped and cut and gentle traction was applied to the cord and the placenta delivered spontaneously immediately following it was noted to be intact with three-vessel cord. The perineum and vagina were inspected and noted to have no laceration. EBL was 200 cc. Patient and infant tolerated delivery well. Presentation: GRIFFIN Placental Delivery Description: Spontaneous Placenta Disposition: [facility] Cord Vessel Description: 3 Vessels Cord Entanglement: None Estimated Blood Loss: 200 Infant A gender: Female Episiotomy Description: None Laceration: None Medications given after delivery: IV Pitocin Complications: None
--- NOTE | 2019-05-12 02:02 | DCINST_ITS ---
Discharge Diet: No Restrictions Discharge Activity: Return to Normal Activity, May not drive while taking narcotic pain medications., May Shower May resume sexual activity in: 4-6 weeks Call your doctor if your incision/area has: Continuous Slow Oozing, Sudden Increased Bleeding, Increased Pain/ Swelling, Increased Redness, Foul Smelling Discharge Additional Instructions: If you experience any of the following, contact your healthcare provider. * Bleeding that soaks a pad every hour for 2 hours * Fever 100.4 or higher * Unrelieved incision or abdominal pain * Swelling, redness, discharge or bleeding from your incision or episiotomy site * Your incision begins to separate * Problems urinating (including inability to urinate or burning while urinating). * Visual changes * Severe headache * Flu-like symptoms * Pain or redness in one of both of your breasts * Pain, warmth, tenderness or swelling in your legs, especially the calf area * Frequent nausea and vomiting * Symptoms of depression or anxiety If you experience any of the following, call 911 or go to the nearest Emergency Room. * Chest pain * Problems breathing * Seizure activity * Partial or complete paralysis of a body part, slurred speech, weakness or drooping of the face, or a sudden inability to walk or hold your balance Allergies/Adverse Reactions: Allergies No Known Allergies Allergy (Verified 05/09/19 13:00) Medications to take at Discharge Vits [Prenatabs FA] 1 tab PO DAILY 05/11/19 Ferrous Sulfate [Slow Fe] 142 mg PO BID #60 tablet.er 05/12/19 Naproxen [Naprosyn] 250 - 500 mg PO Q8H PRN PRN #30 tab 05/12/19 The following prescriptions were given: Naproxen [Naprosyn] 250 - 500 mg PO Q8H PRN PRN #30 tab PRN Reason: MILD PAIN Transmission Status: Pending to [facility] Ferrous Sulfate [Slow Fe] 142 mg PO BID #60 tablet.er Transmission Status: Sent to [facility] Please Follow Up With: Tg Franks MD - [phone] When: Call to make an appointment with your doctor in 6 weeks. If you had elevated Blood pressure or 4th degree laceration you will need to be seen in 2 weeks. Primary Care Physician: Anahy Hirsch MD [Primary Care Provider] - Test Results: Test results from this visit will be discussed in further detail at your follow- up appointment, if applicable.
--- NOTE | 2019-05-12 02:02 | PCM.DCVAG ---
Discharge Diet: No Restrictions Discharge Activity: Return to Normal Activity, May not drive while taking narcotic pain medications., May Shower May resume sexual activity in: 4-6 weeks Call your doctor if your incision/area has: Continuous Slow Oozing, Sudden Increased Bleeding, Increased Pain/ Swelling, Increased Redness, Foul Smelling Discharge Additional Instructions: If you experience any of the following, contact your healthcare provider. Bleeding that soaks a pad every hour for 2 hours Fever 100.4 or higher Unrelieved incision or abdominal pain Swelling, redness, discharge or bleeding from your incision or episiotomy site Your incision begins to separate Problems urinating (including inability to urinate or burning while urinating). Visual changes Severe headache Flu-like symptoms Pain or redness in one of both of your breasts Pain, warmth, tenderness or swelling in your legs, especially the calf area Frequent nausea and vomiting Symptoms of depression or anxiety If you experience any of the following, call 911 or go to the nearest Emergency Room. Chest pain Problems breathing Seizure activity Partial or complete paralysis of a body part, slurred speech, weakness or drooping of the face, or a sudden inability to walk or hold your balance Allergies/Adverse Reactions: Allergies No Known Allergies Allergy (Verified 05/09/19 13:00) Medications to take at Discharge Vits [Prenatabs FA] 1 tab PO DAILY 05/11/19 Ferrous Sulfate [Slow Fe] 142 mg PO BID #60 tablet.er 05/12/19 Naproxen [Naprosyn] 250 - 500 mg PO Q8H PRN PRN #30 tab 05/12/19 The following prescriptions were given: Naproxen [Naprosyn] 250 - 500 mg PO Q8H PRN PRN #30 tab PRN Reason: MILD PAIN Transmission Status: Pending to [facility] Ferrous Sulfate [Slow Fe] 142 mg PO BID #60 tablet.er Transmission Status: Sent to [facility] Please Follow Up With: Tg Franks MD - [phone] When: Call to make an appointment with your doctor in 6 weeks. If you had elevated Blood pressure or 4th degree laceration you will need to be seen in 2 weeks. Primary Care Physician: Anahy Hirsch MD [Primary Care Provider] - Test Results: Test results from this visit will be discussed in further detail at your follow-up appointment, if applicable.
[2019-05-12] MEDS: Acetaminophen 500 MG Tablet 1000 MG PO ×2 (02:50→15:57)
--- NOTE | 2019-05-12 05:30 | NURSING ---
x1 quarter sized clot noted on pad when up to void. Bleeding controlled, educated pt and instructed to call RN if another clot present. Pt verbalizes understanding.
[2019-05-12 06:00] LABS: Hematocrit 22.5 % (37-47); Mean Corp Hgb Conc 31.1 g/gl (32-36); Mean Corpuscular Hgb 22.7 pg (27.0-32.0); Mean Corpuscular Volume 73.1 fL (81-99); Mean Platelet Vol. 10.7 fl (6.2-12.0); Platelet Count 280 K/mm3 (150-450); RBC Distribution Width CV 15.2 % (11.6-14.6); Red Blood Count 3.08 M/mm3 (4.2-5.4); White Blood Count 18.9 K/mm3 (4.4-11.0)
[2019-05-12 06:07] LABS: Scan Indicated on CBC? Y/N NO
[2019-05-12 09:00] VITALS: BP 129/70; PULSE 75; RESP 16; TEMP 36.6
[2019-05-12] MEDS: Prenatal Vits Tablet 1 TABLET PO (10:49)
[2019-05-12] MEDS: Ferrous Sulfate 325 MG Tablet PO ×3 (10:49→18:56)
[2019-05-12 12:30] VITALS: BP 129/72; PULSE 85; RESP 16; TEMP 36.7
[2019-05-12] MEDS: Senna/Docusate Sodium 1 Tablet PO (15:56)
[2019-05-12 16:00] VITALS: BP 131/75; PULSE 86; RESP 16; TEMP 36.9
[2019-05-12 19:50] VITALS: BP 141/70; PULSE 78; RESP 16; TEMP 36.5
--- NOTE | 2019-05-12 20:52 | NURSING ---
1944 Pt stated during assessment she had passed a baseball size clot when up to BR recently. Stated she flushed it down the toilet. Educated pt to call if happens again, small amount of bleeding on peripad at this time.
[2019-05-12] MEDS: Naproxen 250 MG Tablet 500 MG PO (21:46)
[2019-05-13 02:00] VITALS: BP 117/63; PULSE 70; RESP 16; TEMP 36.5
--- NOTE | 2019-05-13 08:29 | PCM.PN.OB ---
Patient Problems: Active and Suspected Problems (Last Reviewed 05/09/19 @ 12:05 by Janice Hernández) Cholestasis during in third trimester (Acute) Proteinuria affecting in third trimester (Acute) Subjective: doing well no complaints pain controlled no CP SOB N V ambulating well tolerating po lochia moderate, going well. Note anemia - Physical Exam General: Alert, Oriented x3 Abdomen: Soft, Non Tender, Non-Distended, - - FF below U Vital Signs Temp Pulse Resp BP 97.7 F L 70 16 117/63 05/13/19 02:00 05/13/19 02:00 05/13/19 02:00 05/13/19 02:00 Oxygen Delivery Method Room Air Weight: 180 lb 1.883 oz Body Mass Index (BMI) 29.0 Intake and Output for Last 24 Hours 05/11/19 05/12/19 05/13/19 23:59 23:59 23:59 Intake Total 3282 / 3282 Output Total 3500 / 3500 Balance -218 / -218 Medical Necessity - Tobacco Use Smoking Status: Never smoker Assessment/Plan All Active Problems (Last Reviewed 05/09/19 @ 12:05 by Janice Hernández) Cholestasis during in third trimester (Acute) Proteinuria affecting in third trimester (Acute) Pruritus of (Acute) Abnormal glucose complicating puerperium (Acute) Anemia affecting , antepartum (Acute) Low lying placenta nos or without hemorrhage, second trimester (Acute) UTI in , antepartum (Acute) (Acute) Supervision of other normal (Acute) Abnormal glucose in , antepartum (Resolved) Active labor at term (Resolved) Anemia in preg-unspec (Resolved) Depression affecting (Resolved) False labor (Resolved) History of GBS (group B streptococcus) UTI, currently (Resolved) IUD contraception (Resolved) PID (acute pelvic inflammatory disease) (Resolved) Pharyngitis (Resolved) SGA (small for gestational age), , affecting care of mother, antepartum (Resolved) Supervision of normal (Resolved) s/p PPD # 1 1. routine post delivery care 2. breast feeding- support given 3. rh positive 4. rubella immune 5. recheck CBC diff 6. plans home today if bleeding/anemia stable 7. Start OTC Fe alternate PNV
[2019-05-13 09:15] VITALS: BP 120/66; PULSE 75; RESP 18; TEMP 36.8
[2019-05-13] MEDS: Ferrous Sulfate 325 MG Tablet PO (09:15)
[2019-05-13 09:35] LABS: Absolute Lymphocyte Count 3.33 X10^3/ul (0.83-4.51); Absolute Neutrophil Count 9.7 X10^3/uL (2.0-7.7); Basophil# 0.04 X10^3/uL; Basophil% 0.3 % (0-1); Eosinophil# 0.24 X10^3/uL; Eosinophils% 1.6 % (0-5); Hematocrit 23.3 % (37-47); Hemoglobin 7.2 g/dl (12.0-15.0); Lymphocyte # 3.33 X10^3/ul (4.0); Lymphocyte % 22.8 % (19-41); Mean Corp Hgb Conc 30.9 g/gl (32-36); Mean Corpuscular Hgb 22.6 pg (27.0-32.0); Mean Platelet Vol. 9.9 fl (6.2-12.0); Monocyte% 7.5 % (0-10); Neutrophil # 9.65 X10^3/uL (2.7-7.7); Platelet Count 290 K/mm3 (150-450); RBC Distribution Width CV 15.2 % (11.6-14.6); RBC Distribution Width SD 38.5 fl (35.1-43.9); Red Blood Count 3.19 M/mm3 (4.2-5.4); White Blood Count 14.6 K/mm3 (4.4-11.0)
[2019-05-13 09:36] LABS: Differential Indicated SCAN CRITERIA MET; POSITIVE COUNT NO; POSITIVE DIFFERENTIAL NO; POSITIVE MORPHOLOGY YES
[2019-05-13 10:00] LABS: Hypochromasia 3+; Microcytosis 1+; Platelet Estimate ADEQUATE (ADEQ); Polychromasia 1+
[2019-05-13] MEDS: Prenatal Vits Tablet 1 TABLET PO (10:52)
[2019-05-13 13:30] VITALS: BP 135/60; PULSE 82; RESP 18; TEMP 37.1
== END 2019-05-13 13:30 | disposition home or self-care (01) | DRG 805 ==
PROVIDERS: Nurse Practitioner Women's Health; Admitting Provider Obstetrics & Gynecology; Family Provider Pediatrics; PCP Pediatrics; Referring Provider Obstetrics & Gynecology; Visit Provider Obstetrics & Gynecology
DX: O26.62 Liver and biliary tract disorders in childbirth (principal); K83.1 Obstruction of bile duct; Z37.0 Single live birth; Z3A.37 37 weeks gestation of pregnancy; D64.9 Anemia, unspecified; O99.02 Anemia complicating childbirth; O12.14 Gestational proteinuria, complicating childbirth; O99.824 Streptococcus B carrier state complicating childbirth; O69.81X0 Labor and delivery complicated by cord around neck, without compression, not applicable or unspecified
CPT/HCPCS: 59025; 59050; 82565; 82570; 84156; 84450; 84460; 84550; 85025; 85027; 85610; 85730; 86850; 86900; 99218; J7120; G0378